=== PATIENT | female | born 1935 | race Caucasian/White ===

== ENCOUNTER 2020-03-22 11:12 | Emergency (ER) | payer MEDICARE, OTHER ==
[~2020-03-22] VITALS: Ht 154.9 cm; Wt 79.0 kg
--- NOTE | 2020-03-22 13:03 | NUR ---
AT BEDSIDE, AWAITING XRAY RESULTS
[2020-03-22 15:15] VITALS: BP 154/76
== END 2020-03-22 16:19 | disposition home or self-care (01) ==
LOC: ER 11:13
DX: S52.601A Unspecified fracture of lower end of right ulna, initial encounter for closed fracture (principal); I10 Essential (primary) hypertension; J44.9 Chronic obstructive pulmonary disease, unspecified; K21.9 Gastro-esophageal reflux disease without esophagitis; Z90.49 Acquired absence of other specified parts of digestive tract; Z90.710 Acquired absence of both cervix and uterus; Z98.890 Other specified postprocedural states; Z88.8 Allergy status to other drugs, medicaments and biological substances; W19.XXXA Unspecified fall, initial encounter; Y93.89 Activity, other specified; Y92.89 Other specified places as the place of occurrence of the external cause; Y99.8 Other external cause status
CPT/HCPCS: 29125; 71045; 73030; 73080; 73090; 99284

== ENCOUNTER 2020-12-21 15:31 | Outpatient (CLI) | payer MEDICARE, OTHER | END 2020-12-21 23:59 | disposition home or self-care (01) | LOC: RAD 15:31 | PROVIDERS: ATTEND Family Medicine | DX: K21.9 Gastro-esophageal reflux disease without esophagitis (principal); R13.11 Dysphagia, oral phase | CPT/HCPCS: 74230 ==